=== PATIENT | female | born 1950 | race Caucasian/White ===

== ENCOUNTER → 2017-07-30 11:32 | Emergency (ER) | payer BC ==
[~2017-07-30 11:32] MED LIST: Aspirin Low Dose CHEW TAB* 81 MG PO ONE; NS 0.9% 1000 ML* 1,000 ML IV SCH; Omeprazole CAP* 20 MG PO ONE
--- NOTE | 2017-07-30 12:30 | RAD ---
HISTORY: Chest pain COMPARISONS: August 08, 2014 VIEWS: 1: frontal portable view of the chest at 12:12 PM FINDINGS: LINES AND TUBES: None. CARDIOMEDIASTINAL SILHOUETTE: The cardiomediastinal silhouette is normal for portable technique. PLEURA: The costophrenic angles are sharp. No pleural abnormalities are noted. LUNG PARENCHYMA: The lungs are clear. ABDOMEN: The upper abdomen is clear. There is no subphrenic gas. BONES AND SOFT TISSUES: No bone or soft tissue abnormalities are noted. IMPRESSION: NO ACTIVE CARDIOPULMONARY DISEASE.
[2017-07-30 12:39] LABS: Hematocrit 43 % (35-47); Hemoglobin 14.3 g/dl (12.0-16.0); Mean Corpuscular HGB Conc 34 g/dl (31-36); Mean Corpuscular Hemoglobin 31 pg (27-31); Mean Corpuscular Volume 92 fL (80-97); Mean Platelet Volume 8 um3 (7.4-10.4); Red Blood Count 4.64 10^6/ul (4.0-5.4); Red Cell Distribution Width 13 % (10.5-15); White Blood Count 5.5 10^3/ul (3.5-10.8)
[2017-07-30 13:04] LABS: Albumin 4.3 g/dL (3.2-5.2); BUN/Creatinine Ratio 18.8 (8-20); C Reactive Protein 2.29 mg/L (< 5.00); Calcium 9.7 mg/dL (8.6-10.3); EGFR African American 92.9 (>60); EGFR Non-African American 72.2 (>60); Globulin 2.8 g/dL (2-4); Magnesium 2.1 mg/dL (1.9-2.7); Potassium 3.8 mmol/L (3.5-5.0); Total Bilirubin 0.8 mg/dL (0.2-1.0); Total Protein 7.1 g/dL (6.4-8.9)
[2017-07-30 13:26] LABS: TSH (Thyroid Stimulating Horm) 1.36 mcIU/mL (0.34-5.60)
[2017-07-30 16:09] VITALS: BP 119/59
--- NOTE | 2017-07-30 16:15 | ED ---
Milana Fowler Edward, scribed for Conrado Carrillo MD on 07/30/17 at 1146 . HPI Chest Pain - HPI Summary HPI Summary: 66 y/o female BIBA c/o sudden onset CP starting last night in the middle of the night, which woke the pt up at around 01:30. The pain is located in the mid- sternal region, more on the L side, described as a burning, waxing and waning. The pain was rated 4/10 in severity last night and was still there this morning at around 08:30; it was slightly better in the morning. Pt also c/o L arm ache when she woke up this morning. Currently the CP is almost completely resolved; the L arm ache is still present. The CP was alleviated slightly with position change. Pt took GERD medication last night that alleviated her CP. Associated sx : "weird taste in mouth", SOB, intermittent dizziness, ORTIZ. Denies nausea. Non- smoker. No PMHx DM, HLD or HTN. PMHx GERD. FHx father - cardiac disease. Pt has had an episode of similar symptoms in the past year. Pt also states she had fast pulses last night and this morning. - History of Current Complaint Chief Complaint: EDChestPainROMI Time Seen by Provider: 07/30/17 11:43 Hx Obtained From: Patient Onset/Duration: Started Hours Ago, Resolved Timing: Constant Initial Severity: Moderate Current Severity: None Pain Intensity: 4 Pain Scale Used: 0-10 Numeric Chest Pain Location: Mid Sternal - more on L side Chest Pain Radiates: Yes Chest Pain Radiates To:: Arm - L arm ache Character: Burning, Dull/Aching Aggravating Factor(s): Nothing Alleviating Factor(s): Other: - position change Associated Signs and Symptoms: Positive: Chest Pain, Headaches, Dizziness, Shortness of Breath, Other: - "weird taste in mouth" - Allergy/Home Medications Allergies/Adverse Reactions: Allergies Allergy/AdvReac Type Severity Reaction Status Date / Time Penicillin V Allergy Rash Verified 12/03/15 08:29 PMH/Surg Hx/FS Hx/Imm Hx Previously Healthy: No Endocrine/Hematology History: Denies: Hx Diabetes, Other Endocrine/Hematological Disorders - negative: HLD Cardiovascular History: Denies: Hx Hypertension, Other Cardiovascular Problems/Disorders Respiratory History: Reports: Other Respiratory Problems/Disorders - PNEUMONIA GI History: Reports: Hx Gastroesophageal Reflux Disease Musculoskeletal History: Denies: Hx Rheumatoid Arthritis, Hx Osteoporosis Psychiatric History: Denies: Other Psychiatric Issues/Disorders - Cancer History Hx Chemotherapy: No Hx Radiation Therapy: No - Surgical History Surgery Procedure, Year, and Place: tonsillectomy Infectious Disease History: No Infectious Disease History: Denies: Traveled Outside the [place] in Last 30 Days - Family History Known Family History: Positive: Cardiac Disease - father Negative: Other - Negative: breast CA - Social History Alcohol Use: Daily Hx Substance Use: No Substance Use Type: Reports: None Hx Tobacco Use: No Smoking Status (MU): Never Smoked Tobacco Review of Systems Constitutional: Negative Eyes: Negative Positive: Other - "weird taste in mouth" Positive: Chest Pain Positive: Shortness Of Breath Gastrointestinal: Negative Genitourinary: Negative Positive: Other - L arm ache Skin: Negative Neurological: Other - dizziness Positive: Headache Psychological: Normal All Other Systems Reviewed And Are Negative: Yes Physical Exam Triage Information Reviewed: Yes Vital Signs On Initial Exam: Initial Vitals Temp Pulse Resp BP Pulse Ox 97.6 F 66 17 119/62 99 07/30/17 11:36 07/30/17 11:36 07/30/17 11:36 07/30/17 11:36 07/30/17 11:36 Vital Signs Reviewed: Yes Appearance: Positive: Well-Appearing, No Pain Distress Skin: Positive: Warm, Skin Color Reflects Adequate Perfusion, Dry Head/Face: Positive: Normal Head/Face Inspection Eyes: Positive: EOMI, JOSE ENT: Positive: Normal ENT inspection Neck: Positive: Supple, Nontender Respiratory/Lung Sounds: Positive: Clear to Auscultation, Breath Sounds Present Cardiovascular: Positive: RRR Abdomen Description: Positive: Nontender, Soft Bowel Sounds: Positive: Present Musculoskeletal: Positive: Normal, Strength/ROM Intact Neurological: Positive: Normal, Sensory/Motor Intact Psychiatric: Positive: Affect/Mood Appropriate Diagnostics - Vital Signs Vital Signs Temp Pulse Resp BP Pulse Ox 07/30/17 11:36 97.6 F 66 17 119/62 99 - Laboratory Lab Results: Lab Results 07/30/17 07/30/17 07/30/17 Range/Units 12:20 12:20 12:20 WBC (3.5-10.8) 10^3/ul RBC (4.0-5.4) 10^6/ul Hgb (12.0-16.0) g/dl Hct (35-47) % MCV (80-97) fL MCH (27-31) pg MCHC (31-36) g/dl RDW (10.5-15) % Plt Count (150-450) 10^3/ul MPV (7.4-10.4) um3 Neut % (Auto) (38-83) % Lymph % (Auto) (25-47) % Glenn % (Auto) (1-9) % Eos % (Auto) (0-6) % Baso % (Auto) (0-2) % Absolute Neuts (auto) (1.5-7.7) 10^3/ul Absolute Lymphs (auto) (1.0-4.8) 10^3/ul Absolute Monos (auto) (0-0.8) 10^3/ul Absolute Eos (auto) (0-0.6) 10^3/ul Absolute Basos (auto) (0-0.2) 10^3/ul Absolute Nucleated RBC 10^3/ul Nucleated RBC % INR (Anticoag Therapy) 0.83 L (0.89-1.11) APTT 27.0 (26.0-36.3) seconds D-Dimer, Quantitative < 200 (Less Than 230) ng/mL Sodium 137 (133-145) mmol/L Potassium 3.8 (3.5-5.0) mmol/L Chloride 104 (101-111) mmol/L Carbon Dioxide 26 (22-32) mmol/L Anion Gap 7 (2-11) mmol/L BUN 15 (6-24) mg/dL Creatinine 0.80 (0.51-0.95) mg/dL Est GFR ( Amer) 92.9 (>60) Est GFR (Non-Af Amer) 72.2 (>60) BUN/Creatinine Ratio 18.8 (8-20) Glucose 114 H (70-100) mg/dL Lactic Acid (0.5-2.0) mmol/L Calcium 9.7 (8.6-10.3) mg/dL Magnesium 2.1 (1.9-2.7) mg/dL Total Bilirubin 0.80 (0.2-1.0) mg/dL AST 15 (13-39) U/L ALT 17 (7-52) U/L Alkaline Phosphatase 64 (34-104) U/L Total Creatine Kinase 76 (10-223) U/L CK-MB (CK-2) 2.9 (0.6-6.3) ng/mL Troponin I 0.00 (<0.04) ng/mL C-Reactive Protein 2.29 (< 5.00) mg/L B-Natriuretic Peptide 123 H ( - 100) pg/mL Total Protein 7.1 (6.4-8.9) g/dL Albumin 4.3 (3.2-5.2) g/dL Globulin 2.8 (2-4) g/dL Albumin/Globulin Ratio 1.5 (1-3) Lipase 23 (11.0-82.0) U/L TSH 1.36 (0.34-5.60) mcIU/mL 07/30/17 07/30/17 07/30/17 Range/Units 12:20 12:20 15:35 WBC 5.5 (3.5-10.8) 10^3/ul RBC 4.64 (4.0-5.4) 10^6/ul Hgb 14.3 (12.0-16.0) g/dl Hct 43 (35-47) % MCV 92 (80-97) fL MCH 31 (27-31) pg MCHC 34 (31-36) g/dl RDW 13 (10.5-15) % Plt Count 276 (150-450) 10^3/ul MPV 8 (7.4-10.4) um3 Neut % (Auto) 58.6 (38-83) % Lymph % (Auto) 29.2 (25-47) % Glenn % (Auto) 8.8 (1-9) % Eos % (Auto) 2.8 (0-6) % Baso % (Auto) 0.6 (0-2) % Absolute Neuts (auto) 3.2 (1.5-7.7) 10^3/ul Absolute Lymphs (auto) 1.6 (1.0-4.8) 10^3/ul Absolute Monos (auto) 0.5 (0-0.8) 10^3/ul Absolute Eos (auto) 0.2 (0-0.6) 10^3/ul Absolute Basos (auto) 0 (0-0.2) 10^3/ul Absolute Nucleated RBC 0 10^3/ul Nucleated RBC % 0 INR (Anticoag Therapy) (0.89-1.11) APTT (26.0-36.3) seconds D-Dimer, Quantitative (Less Than 230) ng/mL Sodium (133-145) mmol/L Potassium (3.5-5.0) mmol/L Chloride (101-111) mmol/L Carbon Dioxide (22-32) mmol/L Anion Gap (2-11) mmol/L BUN (6-24) mg/dL Creatinine (0.51-0.95) mg/dL Est GFR ( Amer) (>60) Est GFR (Non-Af Amer) (>60) BUN/Creatinine Ratio (8-20) Glucose (70-100) mg/dL Lactic Acid 0.8 (0.5-2.0) mmol/L Calcium (8.6-10.3) mg/dL Magnesium (1.9-2.7) mg/dL Total Bilirubin (0.2-1.0) mg/dL AST (13-39) U/L ALT (7-52) U/L Alkaline Phosphatase (34-104) U/L Total Creatine Kinase (10-223) U/L CK-MB (CK-2) (0.6-6.3) ng/mL Troponin I 0.00 (<0.04) ng/mL C-Reactive Protein (< 5.00) mg/L B-Natriuretic Peptide ( - 100) pg/mL Total Protein (6.4-8.9) g/dL Albumin (3.2-5.2) g/dL Globulin (2-4) g/dL Albumin/Globulin Ratio (1-3) Lipase (11.0-82.0) U/L TSH (0.34-5.60) mcIU/mL Result Diagrams: 07/30/17 12:20 07/30/17 12:20 Lab Statement: Any lab studies that have been ordered have been reviewed, and results considered in the medical decision making process. - Radiology CXR Xray Interpretation: No Acute Changes Radiology Interpretation Completed By: Radiologist - ED PHYSICIAN REVIEWS AND AGREES - EKG 1 EKG Interpretation: 11:45 - NSR @ [address] No ectopy. 2 EKG Interpretation: 15:17 - Sinus Bradycardia @ [address], NO ECTOPY EKG Comparison: No Significant Change - from EKG earlier today Re-Evaluation - Re-Evaluation 1 Re-Evaluation Time: 13:35 Change: Improved - Pt states she is in no pain. Reports no arm pain. Discussed lab results. Offered admission, pt refused. Pt wants to stay for 2nd troponin and go from there Chest Pain Course/Dx - Course Course Of Treatment: PAIN GONE IN ED. HAD PAIN IN THE EARLY AM, 1:30, AND WHEN SHE AWOKE AT 8:30AM. DISCUSSED ADMISSION FOR CHEST PAIN. PATIENT DECLINED, AGREED TO RECHECK SECOND TROPONIN/EKG. DISCUSSED RESULTS WITH PATIENT. WILL F/ U PMD; WILL RETURN IF WORSE. - Diagnoses Provider Diagnoses: Chest pain Discharge - Discharge Plan Condition: Stable Disposition: HOME Prescriptions: Omeprazole CAP* [Prilosec CAP* 20 MG] 20 mg PO BID #30 cap. Patient Education Materials: Chest Pain (ED) Referrals: Higinio Collins MD [Primary Care Provider] - Additional Instructions: FOLLOW UP WITH YOUR DOCTOR. RETURN TO THE EMERGENCY DEPARTMENT FOR ANY WORSENING OF YOUR CONDITION; CHEST PAIN, ABDOMINAL PAIN, SHORTNESS OF BREATH, YOU FEEL ILL OR QUESTIONS OR CONCERNS. The documentation as recorded by the Milana wyatt Edward accurately reflects the service I personally performed and the decisions made by me, Conrado Carrillo MD.
== END | disposition home or self-care (01) ==
LOC: ED 11:32
DX: R07.89 Other chest pain (principal); R06.02 Shortness of breath; R51 Headache; R42 Dizziness and giddiness; R00.1 Bradycardia, unspecified; K21.9 Gastro-esophageal reflux disease without esophagitis; Z88.0 Allergy status to penicillin
CPT/HCPCS: 36415; 71010; 80053; 82550; 82553; 83605; 83690; 83735; 83880; 84443; 84484; 85025; 85379; 85610; 85730; 86140; 93005; 99283; A9270-GY